=== PATIENT | male | born 1995 | race Caucasian/White ===

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

== ENCOUNTER 2018-04-08 14:03 | Emergency (ER) | payer MEDICAID ==
[~2018-04-08] VITALS: Ht 182.9 cm; Wt 90.0 kg
[~2018-04-08 14:03] MED LIST: MOTRIN800 MG PO
[2018-04-08 14:45] LABS: HEMATOCRIT 50.9 % (39.0-50.0); HEMOGLOBIN 17.1 g/dl (14.0-18.0); IMMATURE GRANULOCYTES 0.3 % (0.0-5.0); MEAN CELL VOLUME 91.1 fL CALC (80.0-100.0); MEAN CORPUSCULAR HGB 30.6 pG CALC (26.0-32.0); MEAN CORPUSCULAR HGB CONC 33.6 g/L CALC (32.0-36.0); NEUT# 8.28 thou/uL (1.82-7.42); RED BLOOD COUNT 5.59 mill/uL (4.70-6.10); RED CELL DISTRI WIDTH 11.9 % (11.5-15.5)
[2018-04-08] MEDS ORDERED: TORADOL PO (15:06)
[2018-04-08] MEDS ORDERED: VENTOLIN HFA IN (15:06)
[2018-04-08 15:24] VITALS: BP 130/68
== END 2018-04-08 15:30 | disposition home or self-care (01) ==
LOC: ED 14:03
PROVIDERS: Family Medicine
DX: R07.89 Other chest pain (principal); J98.01 Acute bronchospasm; R05 Cough; R07.1 Chest pain on breathing; R61 Generalized hyperhidrosis; J34.89 Other specified disorders of nose and nasal sinuses

== ENCOUNTER 2018-06-06 20:57 | Emergency (ER) | payer SELFPAY ==
[~2018-06-06] VITALS: Ht 182.9 cm; Wt 85.2 kg
[~2018-06-06 20:57] MED LIST changes: +TORADOL PO; +VENTOLIN HFA IN
[2018-06-06 22:31] LABS: INFLUENZA A NONE DETECTED (NONE DETECT); INFLUENZA B NONE DETECTED (NONE DETECT)
[2018-06-06] MEDS ORDERED: KEFLEX500 MG PO (22:52)
[2018-06-06 23:00] VITALS: BP 138/80
[2018-06-06] MEDS ORDERED: CLINDAMYCIN300 M1 PO (23:03)
== END 2018-06-06 23:23 | disposition home or self-care (01) | DRG 153 ==
LOC: ED 20:57
PROVIDERS: Emergency Medicine
DX: J02.9 Acute pharyngitis, unspecified (principal); J45.909 Unspecified asthma, uncomplicated

== ENCOUNTER 2018-06-20 12:41 | Emergency (ER) | payer OTHER ==
[~2018-06-20] VITALS: Ht 182.9 cm; Wt 81.8 kg
[~2018-06-20 12:41] MED LIST changes: +CLINDAMYCIN300 M1 PO; +KEFLEX500 MG PO
[2018-06-20] MEDS ORDERED: LORTAB 1010 MG PO (13:29)
[2018-06-20] MEDS ORDERED: CLEOCIN300 MG PO (13:29)
[2018-06-20 13:37] VITALS: BP 149/95
== END 2018-06-20 13:40 | disposition home or self-care (01) ==
LOC: ED 12:41
DX: K04.7 Periapical abscess without sinus (principal); K08.89 Other specified disorders of teeth and supporting structures; R68.84 Jaw pain

== ENCOUNTER 2019-06-24 19:13 | Emergency (ER) | payer SELFPAY ==
[~2019-06-24] VITALS: Ht 182.9 cm; Wt 90.0 kg
[~2019-06-24 19:13] MED LIST changes: +CLEOCIN300 MG PO; +LORTAB 1010 MG PO
[2019-06-24 20:02] LABS: HEMATOCRIT 45.1 % (39.0-50.0); HEMOGLOBIN 15.3 g/dl (14.0-18.0); IMMATURE GRANULOCYTES 0.5 % (0.0-5.0); MEAN CORPUSCULAR HGB 30.2 pG CALC (26.0-32.0); MEAN CORPUSCULAR HGB CONC 33.9 g/L CALC (32.0-36.0); NEUT# 18.8 thou/uL (1.82-7.42); RED BLOOD COUNT 5.07 mill/uL (4.70-6.10); RED CELL DISTRI WIDTH 12.1 % (11.5-15.5)
[2019-06-24 20:16] LABS: URINE BILIRUBIN - DIPSTICK NEGATIVE (NEGATIVE); URINE BLOOD DIPSTICK NEGATIVE (NEGATIVE); URINE COLOR YELLOW; URINE GLUCOSE - DIPSTICK NEGATIVE (NEGATIVE); URINE KETONE NEGATIVE (NEGATIVE); URINE LEUK ESTERASE NEGATIVE (NEGATIVE); URINE NITRITE - DIPSTICK NEGATIVE (Negative); URINE PROTEIN - DIPSTICK NEGATIVE (NEG-TRACE); URINE UROBILINOGEN - DIPSTICK 0.2 E.U./dL (0.2)
[2019-06-24 20:19] LABS: ALBUMIN 4.4 g/dL (3.2-5.0); ALKALINE PHOSPHATASE 83 u/l (38-126); AMYLASE 47 u/l (30-110); ANION GAP 14 (6-22 (CALC)); BILIRUBIN, TOTAL 0.8 mg/dL (0.0-1.4); BUN 7 mg/dL (9-20); BUN/CREATININE RATIO 9 (12-20 (CALC)); CARBON DIOXIDE 25 mmol/l (22-30); CHLORIDE 102 mmol/l (95-108); CREATININE 0.8 mg/dL (0.7-1.3); GFR > 60 ML/MIN (>=60 (CALC)); GFR FOR AFR.AMER. > 60 ML/MIN (>=60 (CALC)); LIPASE 45 u/l (23-300); POTASSIUM 3.6 mmol/l (3.5-5.1); SGOT/AST 20 u/l (17-59); SODIUM 137 mmol/l (137-146); TOTAL PROTEIN 7.5 g/dL (6.3-8.2)
[2019-06-24] MEDS ORDERED: VENTOLIN HFA IN (21:03)
[2019-06-24] MEDS ORDERED: PHENERGAN25 MG/TAB PO (21:03)
[2019-06-24 21:20] VITALS: BP 121/57
== END 2019-06-24 21:20 | disposition home or self-care (01) | DRG 203 ==
LOC: ED 19:13
PROVIDERS: Family Medicine
DX: J45.909 Unspecified asthma, uncomplicated (principal); K52.9 Noninfective gastroenteritis and colitis, unspecified

== ENCOUNTER 2020-07-12 10:41 | Emergency (ER) | payer SELFPAY ==
[~2020-07-12] VITALS: Ht 182.9 cm; Wt 100.0 kg
[~2020-07-12 10:41] MED LIST changes: +PHENERGAN25 MG/TAB PO
[2020-07-12 11:40] VITALS: BP 132/77
== END 2020-07-12 11:40 | disposition home or self-care (01) | DRG 552 ==
LOC: ED 10:41
DX: M54.6 Pain in thoracic spine (principal); X50.0XXA Overexertion from strenuous movement or load, initial encounter; Y92.89 Other specified places as the place of occurrence of the external cause; Y99.0 Civilian activity done for income or pay

== ENCOUNTER 2021-12-17 15:49 | Emergency (ER) | payer OTHER ==
[~2021-12-17] VITALS: Ht 182.9 cm; Wt 85.0 kg
[2021-12-17] MEDS ORDERED: MOTRIN400 MG/TAB PO ×2 (16:10→16:30)
[2021-12-17] MEDS ORDERED: FLEXERIL5 M1 PO ×2 (16:10→16:30)
[2021-12-17 16:24] VITALS: BP 131/69
== END 2021-12-17 16:35 | disposition home or self-care (01) | DRG 552 ==
LOC: ED 15:49
DX: M54.50 Low back pain, unspecified (principal); V43.12XA Car passenger injured in collision with other type car in nontraffic accident, initial encounter; Y92.481 Parking lot as the place of occurrence of the external cause

== ENCOUNTER 2024-08-01 11:09 | Emergency (ER) | payer MEDICAID ==
[~2024-08-01] VITALS: Ht 182.9 cm; Wt 98.0 kg
[~2024-08-01 11:09] MED LIST changes: +FLEXERIL5 M1 PO; +MOTRIN400 MG/TAB PO
[2024-08-01 11:26] VITALS: BP 122/90
[2024-08-01 11:30] VITALS: BP 120/85
[2024-08-01 11:45] VITALS: BP 119/76
[2024-08-01 12:15] VITALS: BP 120/72
[2024-08-01 12:30] VITALS: BP 126/81
[2024-08-01 12:48] VITALS: BP 126/81
== END 2024-08-01 12:48 | disposition home or self-care (01) ==
LOC: ED 11:09
DX: B34.9 Viral infection, unspecified (principal); Z20.822 Contact with and (suspected) exposure to COVID-19